=== PATIENT | female | born 1940 | race Two or more races ===

== ENCOUNTER 2021-08-19 10:36 | Inpatient (IN) | payer MEDICARE, OTHER ==
[2021-08-19] VITALS (17 sets, daily range): BP systolic 113–179; BP diastolic 23–100
[~2021-08-19] VITALS: Ht 170.2 cm; Wt 70.5 kg
[2021-08-19 11:57] LABS: Albumin 3.5 g/dL (3.4-5.0); Potassium 4.1 mmol/L (3.5-5.1)
[2021-08-19 11:58] LABS: BUN/Creatinine Ratio 21.6
[2021-08-19 12:05] LABS: Total Protein 6.5 g/dL (6.4-8.2)
[2021-08-19 12:30] LABS: Basophils # (auto) 0 10 ^3/uL (0-0.2); Basophils % (auto) 0.3 % (0.0-2.0); Eosinophils # (auto) 0.1 10 ^3/uL (0-0.8); Eosinophils % (auto) 0.7 % (0.0-7.0); Hematocrit 39.2 % (36.0-46.0); Hemoglobin 13.4 g/dL (12.2-16.2); Lymphocytes # (auto) 2.7 10 ^3/uL (0.4-5.4); Lymphocytes % (auto) 31.1 % (10.0-50.0); Mean Corpuscular Hemoglobin 29.8 pg (28.0-32.0); Mean Corpuscular Hgb Conc. 34.1 g/dL (32.0-36.0); Mean Corpuscular Volume 87.3 fL (80.0-100.0); Monocytes # (auto) 0.7 10 ^3/uL (0-1.3); Monocytes % (auto) 7.5 % (0.0-12.0); Neutrophils # (auto) 5.3 10 ^3/uL (1.6-8.6); Neutrophils % (auto) 60.4 % (37.0-80.0); Nucleated Red Blood Cells % 0.1 %; Red Blood Cells 4.49 10^6/uL (4.0-5.20); White Blood Cell 8.8 10^3/uL (4.4-10.8)
[2021-08-19] MEDS ORDERED: DOPamine 1600MCG/ML D5W 250 ML IV ONE (13:00)
[2021-08-19] MEDS ORDERED: ALBU108A5 IN (14:24)
[2021-08-19] MEDS ORDERED: ATOR20TA50 PO (14:24)
[2021-08-19] MEDS ORDERED: APIX5TAB PO (14:24)
[2021-08-19] MEDS ORDERED: AMLO-489 PO (14:24)
[2021-08-19] MEDS ORDERED: LOSA-69 PO (14:24)
[2021-08-19] MEDS ORDERED: SOTA80TA PO (14:24)
[2021-08-19] MEDS ORDERED: ESCI5TAB PO (14:24)
[2021-08-19] MEDS ORDERED: MIRT1TAB38 PO (14:24)
[2021-08-19] MEDS ORDERED: CYAN100T9 SL (14:25)
[2021-08-19] MEDS ORDERED: TRAM50TA2 PO (14:25)
[2021-08-19] MEDS ORDERED: SODIUM CHLORIDE 0.9% 1,000 ML IV ONE ×2 (15:15)
[2021-08-19 15:49] LABS: Cholesterol 107 mg/dL (< 200)
[2021-08-19 15:53] LABS: HDL Cholesterol 29 mg/dL (40-59); LDL Cholesterol 66 mg/dL (< 100); Triglycerides 91 mg/dL (< 150)
[2021-08-19] MEDS ORDERED: DOPamine 1600MCG/ML D5W 250 ML IV SCH ×2 (17:45→19:00)
[2021-08-19] MEDS: ONDANSETRON HCL 4 MG/2 ML VIAL IV PRN (21:11)
[2021-08-19] MEDS ORDERED: APIXABAN 5 MG TAB PO SCH (22:00)
[2021-08-19 22:41] LABS: Urine Bacteria FEW /hpf (None Seen); Urine Blood 1+ /uL (Negative); Urine Budding Yeast MODERATE /hpf (None Seen); Urine Specific Gravity 1.009 (1.001-1.035); Urine WBC 294 /hpf (0 - 5)
[2021-08-20] VITALS (47 sets, daily range): BP systolic 71–203; BP diastolic 30–110
[2021-08-20 04:49] LABS: Basophils # (auto) 0 10 ^3/uL (0-0.2); Basophils % (auto) 0.6 % (0.0-2.0); Eosinophils # (auto) 0.1 10 ^3/uL (0-0.8); Eosinophils % (auto) 0.9 % (0.0-7.0); Hematocrit 38.1 % (36.0-46.0); Lymphocytes # (auto) 2.7 10 ^3/uL (0.4-5.4); Lymphocytes % (auto) 32.5 % (10.0-50.0); Mean Corpuscular Hemoglobin 29.3 pg (28.0-32.0); Mean Corpuscular Hgb Conc. 34.1 g/dL (32.0-36.0); Monocytes # (auto) 0.6 10 ^3/uL (0-1.3); Monocytes % (auto) 7.1 % (0.0-12.0); Neutrophils # (auto) 4.8 10 ^3/uL (1.6-8.6); Neutrophils % (auto) 58.9 % (37.0-80.0); Nucleated Red Blood Cells % 0.1 %; Red Blood Cells 4.44 10^6/uL (4.0-5.20); Red Cell Distribution Width 14.5 % (11.8-14.3); White Blood Cell 8.2 10^3/uL (4.4-10.8)
[2021-08-20 06:42] LABS: Albumin 3.7 g/dL (3.4-5.0); Anion Gap 6 (5-15); Blood Urea Nitrogen 9 mg/dL (7-18); Calcium 8.6 mg/dL (8.5-10.1); Carbon Dioxide 26 mmol/L (21-32); Chloride 110 mmol/L (98-107); Glucose 122 mg/dL (74-106); Potassium 3.9 mmol/L (3.5-5.1); Sodium 142 mmol/L (136-145)
[2021-08-20 06:45] LABS: Alanine Aminotransferase 16 U/L (13-56); Alkaline Phosphatase 94 U/L (45-117); Aspartate Aminotransferase 22 U/L (15-37); BUN/Creatinine Ratio 16.7; Bilirubin, Total 0.7 mg/dL (0.2-1.0); GFR African American 140 mL/min; GFR Non-African American 116 mL/min; Total Protein 7.4 g/dL (6.4-8.2)
[2021-08-20] MEDS ORDERED: GLUCAGON HYDROCHLORIDE (RDNA) 1 MG VIAL IV ONE (08:00)
[2021-08-20] MEDS ORDERED: hydrALAZINE HCL 20 MG/ML VL IV PRN (08:00)
[2021-08-20] MEDS: ENOXAPARIN SOD 40 MG/0.4 ML SYRINGE SC SCH (09:55)
[2021-08-20] MEDS ORDERED: cefTRIAXone 1GM/50ML D5W 50 ML IV ONE (11:30)
[2021-08-20] MEDS: MAGNESIUM SULFATE 1GM/100ML 100 ML IV SCH ×3 (11:54→14:00)
[2021-08-20 13:44] LABS: Free T3 2.18 pg/mL (2.3-4.2)
[2021-08-20] MEDS ORDERED: MAGNESIUM OXIDE 400 MG TAB PO ONE (14:15)
[2021-08-20] MEDS ORDERED: PHENYLEPHRINE INJ 40 MG in SODIUM CHL 0.9% 246 ML IV SCH (16:15)
[2021-08-20] MEDS ORDERED: LORazepam 2MG/ML-1ML VIAL ONE (16:20)
[2021-08-20] MEDS ORDERED: PHENYLEPHRINE IV 250 ML IV ONE (16:21)
[2021-08-20] MEDS ORDERED: LORazepam 2MG/ML-1ML VIAL IV ONE (16:30)
[2021-08-20] MEDS: PHENYLEPHRINE IV 250 ML IV SCH (16:45)
[2021-08-20] MEDS ORDERED: MAGNESIUM SULFATE 1GM/100ML 100 ML IV ONE (19:00)
[2021-08-20] MEDS: MAGNESIUM OXIDE 400 MG TAB PO SCH (20:47)
[2021-08-21] VITALS (89 sets, daily range): BP systolic 73–177; BP diastolic 34–113
[2021-08-21] MEDS: ATROPINE SULFATE 0.4 MG/1 ML VIAL IV PRN ×2 (04:16→11:18)
[2021-08-21 05:07] LABS: Basophils # (auto) 0.1 10 ^3/uL (0-0.2); Basophils % (auto) 0.5 % (0.0-2.0); Eosinophils # (auto) 0.1 10 ^3/uL (0-0.8); Eosinophils % (auto) 0.7 % (0.0-7.0); Hematocrit 39.6 % (36.0-46.0); Hemoglobin 13.5 g/dL (12.2-16.2); Lymphocytes # (auto) 3.8 10 ^3/uL (0.4-5.4); Lymphocytes % (auto) 31.4 % (10.0-50.0); Mean Corpuscular Hemoglobin 29.9 pg (28.0-32.0); Mean Corpuscular Hgb Conc. 34.1 g/dL (32.0-36.0); Mean Corpuscular Volume 87.6 fL (80.0-100.0); Monocytes # (auto) 1.1 10 ^3/uL (0-1.3); Monocytes % (auto) 9.1 % (0.0-12.0); Neutrophils % (auto) 58.3 % (37.0-80.0); Nucleated Red Blood Cells % 0.1 %; Red Blood Cells 4.52 10^6/uL (4.0-5.20); Red Cell Distribution Width 14.5 % (11.8-14.3)
[2021-08-21 05:19] LABS: INR 1.1 (0.9-1.15); Partial Thromboplastin Time 31.7 sec (23.6-33.0)
[2021-08-21 05:38] LABS: Anion Gap 6 (5-15); BUN/Creatinine Ratio 16.1; Blood Urea Nitrogen 10 mg/dL (7-18); Calcium 7.9 mg/dL (8.5-10.1); Carbon Dioxide 24 mmol/L (21-32); Chloride 116 mmol/L (98-107); GFR African American 119 mL/min; GFR Non-African American 99 mL/min; Glucose 80 mg/dL (74-106); Magnesium 2.8 mg/dL (1.6-2.6); Potassium 3.9 mmol/L (3.5-5.1); Sodium 146 mmol/L (136-145)
[2021-08-21 05:42] LABS: Alkaline Phosphatase 76 U/L (45-117)
[2021-08-21] MEDS: LEVOTHYROXINE SODIUM 25 MCG TAB PO SCH (06:44)
[2021-08-21] MEDS: PHENYLEPHRINE IV 250 ML IV SCH ×2 (08:25→09:25)
[2021-08-21] MEDS: cefTRIAXone 1GM/50ML D5W 50 ML IV SCH (09:34)
[2021-08-21] MEDS: ENOXAPARIN SOD 40 MG/0.4 ML SYRINGE SC SCH (09:37)
[2021-08-21] MEDS: MAGNESIUM OXIDE 400 MG TAB PO SCH (09:37)
[2021-08-21] MEDS ORDERED: PHENYLEPHRINE IV 250 ML IV SCH (15:00)
[2021-08-21] MEDS: LORazepam 2MG/ML-1ML VIAL IV PRN (22:41)
[2021-08-22] VITALS (74 sets, daily range): BP systolic 100–181; BP diastolic 45–113
[2021-08-22 05:13] LABS: Basophils # (auto) 0.1 10 ^3/uL (0-0.2); Basophils % (auto) 0.8 % (0.0-2.0); Eosinophils # (auto) 0.1 10 ^3/uL (0-0.8); Eosinophils % (auto) 1.1 % (0.0-7.0); Hematocrit 38.6 % (36.0-46.0); Hemoglobin 13.2 g/dL (12.2-16.2); Lymphocytes # (auto) 4.3 10 ^3/uL (0.4-5.4); Lymphocytes % (auto) 48.9 % (10.0-50.0); Mean Corpuscular Hemoglobin 29.9 pg (28.0-32.0); Mean Corpuscular Hgb Conc. 34.1 g/dL (32.0-36.0); Mean Corpuscular Volume 87.5 fL (80.0-100.0); Monocytes # (auto) 0.6 10 ^3/uL (0-1.3); Monocytes % (auto) 6.7 % (0.0-12.0); Neutrophils # (auto) 3.7 10 ^3/uL (1.6-8.6); Neutrophils % (auto) 42.5 % (37.0-80.0); Nucleated Red Blood Cells % 0.2 %; Red Blood Cells 4.42 10^6/uL (4.0-5.20); Red Cell Distribution Width 14.8 % (11.8-14.3); White Blood Cell 8.7 10^3/uL (4.4-10.8)
[2021-08-22 05:32] LABS: INR 1.12 (0.9-1.15); Partial Thromboplastin Time 33.6 sec (23.6-33.0)
[2021-08-22 05:40] LABS: BUN/Creatinine Ratio 15.1; Calcium 8.7 mg/dL (8.5-10.1); Potassium 3.8 mmol/L (3.5-5.1)
[2021-08-22] MEDS: LEVOTHYROXINE SODIUM 25 MCG TAB PO SCH (05:56)
[2021-08-22] MEDS ORDERED: PHENYLEPHRINE IV 250 ML IV SCH (07:30)
[2021-08-22] MEDS: cefTRIAXone 1GM/50ML D5W 50 ML IV SCH (09:15)
[2021-08-22] MEDS: ENOXAPARIN SOD 40 MG/0.4 ML SYRINGE SC SCH (10:00)
[2021-08-22] MEDS ORDERED: LIDOCAINE 2%HCL (LOCAL ANESTH.) INJ 10ml MDV ONE (14:09)
[2021-08-22] MEDS ORDERED: VANCOMYCIN HCL 1000 MG VL ONE (14:24)
[2021-08-22] MEDS ORDERED: diphenhdrAMINE HCL 50 MG/1 ML VL ONE (14:25)
[2021-08-22] MEDS ORDERED: MIDAZOLAM HCL 2MG/2ML 2ml VIAL (1mg/ml) ONE (14:25)
[2021-08-22] MEDS ORDERED: fentaNYL CITRATE 100 MCG/2 ML VL ONE (14:25)
[2021-08-22] MEDS ORDERED: VANCOMYCIN 1GM/250ML 250 ML IV ONE (14:25)
[2021-08-22] MEDS: MORPHINE SULFATE INJECTION 2 MG/ML SYRG IV PRN (21:10)
[2021-08-22] MEDS: METOPROLOL TARTRATE 25 MG TAB PO SCH (21:30)
[2021-08-23] VITALS (35 sets, daily range): BP systolic 89–158; BP diastolic 46–121
[2021-08-23] MEDS: MORPHINE SULFATE INJECTION 2 MG/ML SYRG IV PRN ×3 (01:04→22:00)
[2021-08-23] MEDS: LEVOTHYROXINE SODIUM 25 MCG TAB PO SCH (06:56)
[2021-08-23] MEDS: cefTRIAXone 1GM/50ML D5W 50 ML IV SCH (09:17)
[2021-08-23] MEDS: METOPROLOL TARTRATE 25 MG TAB PO SCH ×2 (09:23→23:05)
[2021-08-23] MEDS: ENOXAPARIN SOD 40 MG/0.4 ML SYRINGE SC SCH (10:00)
[2021-08-23] MEDS ORDERED: LISINOPRIL 5 MG TAB PO SCH (10:00)
[2021-08-23] MEDS ORDERED: LACTULOSE 20Gm/30ML SOLN PO PRN (10:15)
[2021-08-23] MEDS ORDERED: ASPirin 81 mg TAB PO ONE (10:30)
[2021-08-23] MEDS ORDERED: FLEET ENEMA(ADULT) 135 ML PR ONE (14:30)
[2021-08-23] MEDS: LORazepam 2MG/ML-1ML VIAL IV PRN (14:46)
[2021-08-23] MEDS ORDERED: ADENOSINE 6 MG/2 ML INJ IV ONE ×4 (18:30→18:41)
[2021-08-23] MEDS ORDERED: DIGOXIN (250MCG/ML) 2 ML AMPULE ONE (18:41)
[2021-08-23] MEDS ORDERED: DIGOXIN (250MCG/ML) 2 ML AMPULE IV ONE (18:45)
[2021-08-23] MEDS ORDERED: AMIODARONE HCL 150 MG in D5W 5% 100 ML IV ONE (18:45)
[2021-08-23] MEDS ORDERED: AMIODARONE 450mg/250ml AE 250 ML IV ONE (18:50)
[2021-08-23] MEDS ORDERED: AMIODARONE HCL (50 MG/ ML) 3 ML VIAL IV ONE (18:50)
[2021-08-23] MEDS ORDERED: AMIODARONE 450mg/250ml AE 250 ML IV SCH (19:00)
[2021-08-23 22:14] LABS: Basophils # (auto) 0.1 10 ^3/uL (0-0.2); Basophils % (auto) 0.5 % (0.0-2.0); Eosinophils # (auto) 0 10 ^3/uL (0-0.8); Hematocrit 40.3 % (36.0-46.0); Hemoglobin 13.6 g/dL (12.2-16.2); Lymphocytes # (auto) 1.8 10 ^3/uL (0.4-5.4); Lymphocytes % (auto) 13.5 % (10.0-50.0); Mean Corpuscular Hemoglobin 29.6 pg (28.0-32.0); Mean Corpuscular Hgb Conc. 33.6 g/dL (32.0-36.0); Mean Corpuscular Volume 88.1 fL (80.0-100.0); Monocytes # (auto) 1.3 10 ^3/uL (0-1.3); Monocytes % (auto) 9.4 % (0.0-12.0); Neutrophils # (auto) 10.2 10 ^3/uL (1.6-8.6); Neutrophils % (auto) 76.6 % (37.0-80.0); Red Blood Cells 4.58 10^6/uL (4.0-5.20); Red Cell Distribution Width 14.6 % (11.8-14.3); White Blood Cell 13.4 10^3/uL (4.4-10.8)
[2021-08-23 22:30] LABS: Anion Gap 10 (5-15); BUN/Creatinine Ratio 9.5; Blood Urea Nitrogen 9 mg/dL (7-18); Calcium 8.5 mg/dL (8.5-10.1); Carbon Dioxide 23 mmol/L (21-32); Chloride 109 mmol/L (98-107); GFR African American 73 mL/min; GFR Non-African American 60 mL/min; Glucose 143 mg/dL (74-106); Potassium 3.9 mmol/L (3.5-5.1); Sodium 142 mmol/L (136-145)
[2021-08-24] VITALS (18 sets, daily range): BP systolic 87–156; BP diastolic 38–98
[2021-08-24] MEDS: AMIODARONE 450mg/250ml AE 250 ML IV SCH ×2 (01:06→03:52)
[2021-08-24] MEDS: LEVOTHYROXINE SODIUM 25 MCG TAB PO SCH (06:38)
[2021-08-24] MEDS ORDERED: FUROSEMIDE 20 MG/2 ML VIAL IV ONE (08:00)
[2021-08-24] MEDS: cefTRIAXone 1GM/50ML D5W 50 ML IV SCH (08:54)
[2021-08-24] MEDS ORDERED: AMIODARONE HCL 200 MG TAB PO ONE (10:00)
[2021-08-24] MEDS: ENOXAPARIN SOD 40 MG/0.4 ML SYRINGE SC SCH (10:00)
[2021-08-24] MEDS: ASPirin 81 mg TAB PO SCH (10:00)
[2021-08-24] MEDS ORDERED: MAGNESIUM OXIDE 400 MG TAB PO ONE ×2 (10:00→22:00)
[2021-08-24] MEDS: METOPROLOL TARTRATE 25 MG TAB PO SCH ×2 (10:00→22:46)
[2021-08-24] MEDS ORDERED: MIDAZOLAM HCL 2MG/2ML 2ml VIAL (1mg/ml) ONE ×2 (10:31→14:05)
[2021-08-24] MEDS ORDERED: fentaNYL CITRATE 100 MCG/2 ML VL ONE (14:06)
[2021-08-24] MEDS ORDERED: LIDOCAINE 2%HCL (LOCAL ANESTH.) INJ 10ml MDV ONE (14:18)
[2021-08-24] MEDS ORDERED: FUROSEMIDE 20 MG/2 ML VIAL IV SCH (18:00)
[2021-08-24] MEDS ORDERED: HYALURONIDASE 150 UNIT/1 ML SUBCUT ONE (18:45)
[2021-08-24] MEDS: MORPHINE SULFATE INJECTION 2 MG/ML SYRG IV PRN (18:52)
[2021-08-24] MEDS ORDERED: NITROGLYCERIN 2% OINT 1GM PKG TD ONE (21:30)
[2021-08-24] MEDS: AMIODARONE HCL 200 MG TAB PO SCH (22:43)
[2021-08-25] VITALS (27 sets, daily range): BP systolic 66–110; BP diastolic 27–69
[2021-08-25] MEDS: MORPHINE SULFATE INJECTION 2 MG/ML SYRG IV PRN (02:26)
[2021-08-25 04:46] LABS: Basophils # (auto) 0.1 10 ^3/uL (0-0.2); Basophils % (auto) 0.9 % (0.0-2.0); Eosinophils # (auto) 0.1 10 ^3/uL (0-0.8); Eosinophils % (auto) 0.5 % (0.0-7.0); Hematocrit 37.3 % (36.0-46.0); Hemoglobin 12.8 g/dL (12.2-16.2); Lymphocytes # (auto) 2.7 10 ^3/uL (0.4-5.4); Lymphocytes % (auto) 22.8 % (10.0-50.0); Mean Corpuscular Hgb Conc. 34.2 g/dL (32.0-36.0); Mean Corpuscular Volume 84.8 fL (80.0-100.0); Monocytes # (auto) 1.2 10 ^3/uL (0-1.3); Monocytes % (auto) 10.5 % (0.0-12.0); Neutrophils # (auto) 7.8 10 ^3/uL (1.6-8.6); Neutrophils % (auto) 65.3 % (37.0-80.0); Nucleated Red Blood Cells % 0.1 %; Red Blood Cells 4.39 10^6/uL (4.0-5.20); Red Cell Distribution Width 14.3 % (11.8-14.3); White Blood Cell 11.9 10^3/uL (4.4-10.8)
[2021-08-25 05:07] LABS: Calcium 8.4 mg/dL (8.5-10.1); Phosphorus 2.5 mg/dL (2.5-4.90); Potassium 3.6 mmol/L (3.5-5.1)
[2021-08-25] MEDS ORDERED: DIGOXIN (250MCG/ML) 2 ML AMPULE IV ONE ×2 (05:30→06:00)
[2021-08-25] MEDS: LEVOTHYROXINE SODIUM 25 MCG TAB PO SCH (06:35)
[2021-08-25] MEDS: cefTRIAXone 1GM/50ML D5W 50 ML IV SCH (08:36)
[2021-08-25] MEDS: ENOXAPARIN SOD 40 MG/0.4 ML SYRINGE SC SCH (09:57)
[2021-08-25] MEDS: ASPirin 81 mg TAB PO SCH (09:57)
[2021-08-25] MEDS: AMIODARONE HCL 200 MG TAB PO SCH (09:57)
[2021-08-25] MEDS: METOPROLOL TARTRATE 25 MG TAB PO SCH ×2 (10:00→22:00)
[2021-08-25] MEDS ORDERED: AMIODARONE 450mg/250ml AE 250 ML IV SCH (12:15)
[2021-08-25] MEDS ORDERED: DIGOXIN 0.125 MG TAB PO ONE (12:15)
[2021-08-25] MEDS ORDERED: AMIODARONE HCL 150 MG in D5W 5% 100 ML IV ONE (12:15)
[2021-08-25] MEDS ORDERED: POTASSIUM CHL 20 Meq TABLET PO ONE (12:15)
[2021-08-25] MEDS: LORazepam 2MG/ML-1ML VIAL IV PRN ×2 (12:30→18:53)
[2021-08-25] MEDS: AMIODARONE 450mg/250ml AE 250 ML IV SCH (18:35)
[2021-08-25] MEDS: NOREPINEPHRINE 8 MG/250ML KIT 250 ML IV SCH (18:35)
[2021-08-25 18:42] LABS: Hematocrit 39.1 % (36.0-46.0); Hemoglobin 13.3 g/dL (12.2-16.2)
[2021-08-25] MEDS: ONDANSETRON HCL 4 MG/2 ML VIAL IV PRN (18:53)
[2021-08-26] VITALS (53 sets, daily range): BP systolic 86–150; BP diastolic 35–99
[2021-08-26] MEDS: LEVOTHYROXINE SODIUM 25 MCG TAB PO SCH (07:00)
[2021-08-26] MEDS: AMIODARONE 450mg/250ml AE 250 ML IV SCH (08:56)
[2021-08-26] MEDS: cefTRIAXone 1GM/50ML D5W 50 ML IV SCH (08:56)
[2021-08-26 09:17] LABS: Basophils # (auto) 0.1 10 ^3/uL (0-0.2); Basophils % (auto) 0.5 % (0.0-2.0); Eosinophils # (auto) 0.1 10 ^3/uL (0-0.8); Eosinophils % (auto) 0.9 % (0.0-7.0); Hematocrit 36.6 % (36.0-46.0); Hemoglobin 12.8 g/dL (12.2-16.2); Lymphocytes # (auto) 1.3 10 ^3/uL (0.4-5.4); Lymphocytes % (auto) 14.5 % (10.0-50.0); Mean Corpuscular Hemoglobin 29.9 pg (28.0-32.0); Mean Corpuscular Hgb Conc. 34.9 g/dL (32.0-36.0); Mean Corpuscular Volume 85.5 fL (80.0-100.0); Monocytes # (auto) 0.9 10 ^3/uL (0-1.3); Monocytes % (auto) 10.2 % (0.0-12.0); Neutrophils # (auto) 6.8 10 ^3/uL (1.6-8.6); Neutrophils % (auto) 73.9 % (37.0-80.0); Red Blood Cells 4.28 10^6/uL (4.0-5.20); Red Cell Distribution Width 14.2 % (11.8-14.3); White Blood Cell 9.2 10^3/uL (4.4-10.8)
[2021-08-26] MEDS: METOPROLOL TARTRATE 25 MG TAB PO SCH ×2 (10:00→22:00)
[2021-08-26 10:12] LABS: BUN/Creatinine Ratio 20.7; Calcium 8.5 mg/dL (8.5-10.1); Potassium 3.5 mmol/L (3.5-5.1)
[2021-08-26] MEDS: ENOXAPARIN SOD 40 MG/0.4 ML SYRINGE SC SCH (10:37)
[2021-08-26] MEDS: DIGOXIN 0.125 MG TAB PO SCH (10:46)
[2021-08-26] MEDS: ASPirin 81 mg TAB PO SCH (10:47)
[2021-08-26] MEDS: AMIODARONE HCL 200 MG TAB PO SCH (11:41)
[2021-08-26] MEDS ORDERED: POTASSIUM CHL 20 Meq TABLET PO ONE (12:15)
[2021-08-26] MEDS ORDERED: POTASSIUM EFFERVESENT TAB 25 MEQ PO ONE (13:45)
[2021-08-26] MEDS: NOREPINEPHRINE 8 MG/250ML KIT 250 ML IV SCH (15:45)
[2021-08-26] MEDS: NITROGLYCERIN 2% OINT 1GM PKG TD SCH ×4 (17:36→19:45)
[2021-08-27] VITALS (17 sets, daily range): BP systolic 118–143; BP diastolic 38–89
[2021-08-27] MEDS: LEVOTHYROXINE SODIUM 25 MCG TAB PO SCH (07:42)
[2021-08-27] MEDS: cefTRIAXone 1GM/50ML D5W 50 ML IV SCH (09:42)
[2021-08-27] MEDS: ASPirin 81 mg TAB PO SCH (09:42)
[2021-08-27] MEDS: AMIODARONE HCL 200 MG TAB PO SCH (09:43)
[2021-08-27] MEDS: DIGOXIN 0.125 MG TAB PO SCH (09:43)
[2021-08-27] MEDS: ENOXAPARIN SOD 40 MG/0.4 ML SYRINGE SC SCH (09:44)
[2021-08-27] MEDS: METOPROLOL TARTRATE 25 MG TAB PO SCH ×2 (09:44→22:00)
[2021-08-27 10:00] LABS: Calcium 8.8 mg/dL (8.5-10.1); Potassium 3.4 mmol/L (3.5-5.1)
[2021-08-27 10:01] LABS: BUN/Creatinine Ratio 17.5
[2021-08-27 15:30] LABS: Urine Bacteria FEW /hpf (None Seen); Urine Blood 1+ /uL (Negative); Urine Mucus FEW (None Seen); Urine Specific Gravity 1.023 (1.001-1.035); Urine WBC 3 /hpf (0 - 5)
[2021-08-28] VITALS (7 sets, daily range): BP systolic 109–154; BP diastolic 42–95
[2021-08-28] MEDS: LEVOTHYROXINE SODIUM 25 MCG TAB PO SCH (07:23)
[2021-08-28] MEDS ORDERED: POTASSIUM EFFERVESENT TAB 25 MEQ PO ONE ×2 (09:15→09:45)
[2021-08-28] MEDS: METOPROLOL TARTRATE 25 MG TAB PO SCH ×2 (10:00→22:30)
[2021-08-28] MEDS: AMIODARONE HCL 200 MG TAB PO SCH ×2 (10:44→22:30)
[2021-08-28] MEDS: ENOXAPARIN SOD 40 MG/0.4 ML SYRINGE SC SCH (10:44)
[2021-08-28] MEDS: DIGOXIN 0.125 MG TAB PO SCH (10:44)
[2021-08-28] MEDS: ASPirin 81 mg TAB PO SCH (10:45)
[2021-08-28] MEDS: Ensure HIGH Protein Chocolate 8oz Bottle PO SCH ×2 (12:00→18:00)
[2021-08-28] MEDS ORDERED: METOPROLOL TARTRATE 1MG/1ML-5ML VIAL IV PRN (18:30)
[2021-08-28] MEDS: LORazepam 2MG/ML-1ML VIAL IV PRN (18:59)
[2021-08-29 05:00] VITALS: BP 133/52
[2021-08-29] MEDS: LEVOTHYROXINE SODIUM 25 MCG TAB PO SCH (06:35)
[2021-08-29 08:55] VITALS: BP 110/55
[2021-08-29] MEDS: Ensure HIGH Protein Chocolate 8oz Bottle PO SCH ×3 (11:31→18:15)
[2021-08-29] MEDS: ENOXAPARIN SOD 40 MG/0.4 ML SYRINGE SC SCH (12:26)
[2021-08-29] MEDS: DIGOXIN 0.125 MG TAB PO SCH (12:27)
[2021-08-29] MEDS: METOPROLOL TARTRATE 25 MG TAB PO SCH ×2 (12:27→21:32)
[2021-08-29] MEDS: ASPirin 81 mg TAB PO SCH (12:27)
[2021-08-29] MEDS: AMIODARONE HCL 200 MG TAB PO SCH ×2 (12:28→21:31)
[2021-08-29 13:00] VITALS: BP 140/62
[2021-08-29 16:51] VITALS: BP 145/84
[2021-08-29 22:00] VITALS: BP 144/66
[2021-08-30 05:00] VITALS: BP 131/50
[2021-08-30] MEDS: LEVOTHYROXINE SODIUM 25 MCG TAB PO SCH (07:00)
[2021-08-30 10:00] VITALS: BP 104/65
[2021-08-30] MEDS ORDERED: MET25T PO (10:54)
[2021-08-30] MEDS ORDERED: POLY33504 PO (10:54)
[2021-08-30] MEDS ORDERED: ASPI1TAB20 PO (10:54)
[2021-08-30] MEDS ORDERED: LEV25T PO (10:54)
[2021-08-30] MEDS ORDERED: AMIO200T33 PO (10:54)
[2021-08-30] MEDS ORDERED: DIGO1TAB48 PO (10:54)
[2021-08-30] MEDS: Ensure HIGH Protein Chocolate 8oz Bottle PO SCH ×3 (12:00→18:00)
[2021-08-30 13:00] VITALS: BP 121/64
[2021-08-30] MEDS: ASPirin 81 mg TAB PO SCH (13:24)
[2021-08-30] MEDS: AMIODARONE HCL 200 MG TAB PO SCH (13:25)
[2021-08-30] MEDS: DIGOXIN 0.125 MG TAB PO SCH (13:25)
[2021-08-30] MEDS: METOPROLOL TARTRATE 25 MG TAB PO SCH ×2 (13:26→14:26)
[2021-08-30] MEDS: ENOXAPARIN SOD 40 MG/0.4 ML SYRINGE SC SCH (13:26)
[2021-08-30 16:24] VITALS: BP 127/64
== END 2021-08-30 19:30 | disposition home or self-care (01) | DRG 242 ==
LOC: ER 10:36 → OVERFLOW 14:53 → DOU IN ICU 17:21 → ICU CENTRL 22:59 → DOU IN ICU 08-23 17:21 → ICU WEST 08-25 16:15 → TELE-CENTR 08-28 12:00
PROVIDERS: ADMIT Registered Nurse; ATTEND Internal Medicine
PROC: 05H933Z Insertion of Infusion Device into Right Brachial Vein, Percutaneous Approach (ICD-10-PCS; 2021-08-20)
PROC: B54MZZA Ultrasonography of Right Upper Extremity Veins, Guidance (ICD-10-PCS; 2021-08-20)
PROC: 0JH606Z Insertion of Pacemaker, Dual Chamber into Chest Subcutaneous Tissue and Fascia, Open Approach (ICD-10-PCS; principal; 2021-08-22)
PROC: 02H63JZ Insertion of Pacemaker Lead into Right Atrium, Percutaneous Approach (ICD-10-PCS; 2021-08-22)
PROC: 02HK3JZ Insertion of Pacemaker Lead into Right Ventricle, Percutaneous Approach (ICD-10-PCS; 2021-08-22)
PROC: 0W9B30Z Drainage of Left Pleural Cavity with Drainage Device, Percutaneous Approach (ICD-10-PCS; 2021-08-24)
DX: I49.5 Sick sinus syndrome (principal); J96.01 Acute respiratory failure with hypoxia; N39.0 Urinary tract infection, site not specified; J90 Pleural effusion, not elsewhere classified; J93.9 Pneumothorax, unspecified; K92.2 Gastrointestinal hemorrhage, unspecified; E78.5 Hyperlipidemia, unspecified; F02.80 Dementia in other diseases classified elsewhere, unspecified severity, without behavioral disturbance, psychotic disturbance, mood disturbance, and anxiety; Z20.822 Contact with and (suspected) exposure to COVID-19; G30.9 Alzheimer's disease, unspecified; I10 Essential (primary) hypertension; I48.0 Paroxysmal atrial fibrillation; T50.995A Adverse effect of other drugs, medicaments and biological substances, initial encounter; E83.42 Hypomagnesemia; E03.9 Hypothyroidism, unspecified; K64.9 Unspecified hemorrhoids; Z88.8 Allergy status to other drugs, medicaments and biological substances
CPT/HCPCS: 10005; 33208; 36415; 70450; 71045; 71250; 77012; 80048; 80053; 80061; 80162; 81001; 82962; 83735; 83880; 84075; 84100; 84439; 84443; 84481; 84484; 85014; 85018; 85025; 85610; 85730; 86850; 86900; 86901; 87081; 87086; 93005; 93306; 93886; 96361; 96365; 97110; 97116; 97163; 97530; 99152; 99153; 99291; C1785; G0378; J0153; J0461; J0696; J2001; J2250; J2405; J3470; J7060

== ENCOUNTER → 2021-09-07 | Outpatient (CLI) | payer MEDICARE ==
[~2021-09-07] MED LIST: AMIO200T33 PO; ASPI1TAB20 PO; ATOR20TA50 PO; CYAN100T9 SL; DIGO1TAB48 PO; ESCI5TAB PO; LEV25T PO; MET25T PO; MIRT1TAB38 PO; POLY33504 PO
[2021-09-07 12:21] LABS: Basophils # (auto) 0.1 10 ^3/uL (0-0.2); Basophils % (auto) 0.8 % (0.0-2.0); Eosinophils # (auto) 0.1 10 ^3/uL (0-0.8); Eosinophils % (auto) 1.4 % (0.0-7.0); Hematocrit 39.3 % (36.0-46.0); Hemoglobin 13.2 g/dL (12.2-16.2); Lymphocytes # (auto) 2.7 10 ^3/uL (0.4-5.4); Lymphocytes % (auto) 26.4 % (10.0-50.0); Mean Corpuscular Hemoglobin 27.9 pg (28.0-32.0); Mean Corpuscular Hgb Conc. 33.5 g/dL (32.0-36.0); Mean Corpuscular Volume 83.1 fL (80.0-100.0); Monocytes # (auto) 0.7 10 ^3/uL (0-1.3); Monocytes % (auto) 6.9 % (0.0-12.0); Neutrophils # (auto) 6.5 10 ^3/uL (1.6-8.6); Neutrophils % (auto) 64.5 % (37.0-80.0); Nucleated Red Blood Cells % 0.3 %; Red Blood Cells 4.73 10^6/uL (4.0-5.20); Red Cell Distribution Width 14.7 % (11.8-14.3); White Blood Cell 10.1 10^3/uL (4.4-10.8)
[2021-09-07 12:47] LABS: Potassium 3.8 mmol/L (3.5-5.1)
[2021-09-07 12:53] LABS: Albumin 3.1 g/dL (3.4-5.0); BUN/Creatinine Ratio 12.6; Bilirubin, Total 0.8 mg/dL (0.2-1.0); Calcium 8.8 mg/dL (8.5-10.1); Total Protein 6.4 g/dL (6.4-8.2)
== END | disposition home or self-care (01) ==
LOC: Rad HDHVI 11:09
PROVIDERS: ATTEND Internal Medicine
DX: J43.0 Unilateral pulmonary emphysema [MacLeod's syndrome] (principal); I83.899 Varicose veins of unspecified lower extremity with other complications; Z79.899 Other long term (current) drug therapy
CPT/HCPCS: 36415; 71046; 80053; 80162; 85025

== ENCOUNTER → 2021-09-12 | Outpatient (CLI) | payer MEDICARE | END | disposition home or self-care (01) | LOC: LAB 11:07 | PROVIDERS: ATTEND Internal Medicine | DX: I49.5 Sick sinus syndrome (principal); E03.9 Hypothyroidism, unspecified | CPT/HCPCS: 36415; 80162; 84439; 84443 ==